=== PATIENT | female | born 2005 | race Caucasian/White ===

== ENCOUNTER 2025-06-29 08:19 | Inpatient (IN) | payer OTHER, SELFPAY ==
[2025-06-29] VITALS (13 sets, daily range): BP systolic 93–113; BP diastolic 63–75; PULSE 67–124; RESP 16–35; TEMP 36.9–37.9; O2SAT 94–98; BMI 27.6; BMI 27.7
--- NOTE | 2025-06-29 08:30 | EKG12_ITS ---
Test Reason : Blood Pressure : */* mmHG Vent. Rate : 112 BPM Atrial Rate : 112 BPM P-R Int : 142 ms QRS Dur : 74 ms QT Int : 310 ms P-R-T Axes : 61 83 18 degrees QTcB Int : 423 ms Sinus tachycardia Otherwise normal ECG Confirmed by MEET MANZANO, BERTRAND ([id number]), medical editor MILENA ZAPATA ([id number]) on 07/02/2025 7:03:25 AM Referred By: Confirmed By: BERTRAND DSOUZA MD
--- NOTE | 2025-06-29 08:31 | EX.ED.DYSGE1 ---
HPI History of Present Illness Chief Complaint: Fever Narrative Narrative: Patient is a 20-year-old female with no known significant past medical history who presented to the emergency department with a chief complaint of cough, sore throat, fever. According to family members they noted that she started getting ill on Wednesday of this past week and on Wednesday followed up with their doctor and she was diagnosed with strep throat. They state that she was started on a antibiotic for this and after reviewing the paperwork noted that this was amoxicillin. States that she has been taking this as prescribed and not missing doses. She notes that her fevers been 103 at home. Father at bedside notes that this morning when they checked her oxygen with a pulse ox it read 79% on room air. They note that she has a significant cough PFSH PFSH Home Medications ?Medication ?Instructions ?Recorded ?Last Taken ?Type NK 06/29/25 Unknown History Allergy/AdvReac Type Severity Reaction Status Date / Time No Known Allergies Allergy Verified 06/29/25 08:20 Social History Smoking Status: Never smoker ROS ROS ED ROS Narrative Constitutional: Complains of fever as noted above as well as chills denies headache Eyes: Denies changes double vision blurry vision Cardiovascular: Denies chest pain Respiratory: Complains of cough and low oxygen level at home as noted above Abdomen: Denies abdominal pain nausea vomit diarrhea : Denies any urinary symptoms Neurological: Denies any numbness, wheeze, tingling Musculoskeletal: Denies back pain Skin: Denies any rashes or lesions EXAM Physical Exam Narrative Exam Narrative: General: Patient is lying in bed rest comfortably did not appear to be in acute distress Head: Atraumatic, normocephalic Eyes, ears, nose, throat: PERRL bilaterally, EOMI bilaterally, no conjunctival injection noted, posterior pharynx visualized no evidence peritonsillar abscess uvula midline Neck: Soft, supple, trachea midline Cardiovascular: Patient tachycardic with a regular rhythm Respiratory: Clear to auscultation bilaterally Abdomen: Soft, nondistended, nontender to palpation Extremities: +5/5 strength noted in the bilateral upper and lower extremities Neurological: Patient following commands knew that she was at [facility] year is 2024 Skin: Warm, dry, tact no rashes or lesions noted Const Vital Signs: 06/29/25 08:20 06/29/25 08:22 06/29/25 08:30 Temperature 99.8 F H 99.2 F H Temperature Source Oral Oral Pulse Rate 112 H 113 H Respiratory Rate 18 25 H Blood Pressure 113/71 105/71 Blood Pressure Mean 85 82 Pulse Ox 96 96 95 Oxygen Delivery Method Room Air Room Air Room Air Oxygen Flow Rate (L/min) 06/29/25 09:22 06/29/25 10:00 Temperature 99.5 F H 99.1 F Temperature Source Oral Oral Pulse Rate 124 H 115 H Respiratory Rate 26 H 29 H Blood Pressure 112/71 103/68 Blood Pressure Mean 84 79 Pulse Ox 95 95 Oxygen Delivery Method Room Air Nasal Cannula Oxygen Flow Rate (L/min) 2 2 MDM MDM MDM Narrative Medical decision making narrative: Patient is a 20-year-old female who presented to the emergency department chief complaint of fever, cough and recent diagnosis of strep throat. Once again she has been on amoxicillin. On the differential diagnose includes but not limited to peritonsillar abscess, retropharyngeal abscess although clinically have low suspicion for these, pneumonia, press for infection secondary viral etiology. Once workup is obtained and reviewed she will be reevaluated. Patient will be given IV fluids for hydration. Patient CBC reviewed showed no evidence leukocytosis white blood count 9.2, he was 14.6, platelet count was noted be 231. Patient INR normal 1.2, PT of 15, sodium normal 137, potassium normal at 4, creatinine 0.65. Patient lactic acid level less than 1, AST and ALT were 60 and 106 respectively. Patient is negative, urinalysis reviewed showed no evidence of infection. Patient's chest x-ray reviewed by myself and by radiology which showed a left midlung opacity likely pneumonia. Patient will be given Rocephin and azithromycin this was ordered at 9:34 AM. Patient's EKG reviewed and showed sinus tachycardia with a rate of 112 bpm. Patient ambulated here in the emergency department and she dropped her O2 sat to 89% and is still persistently tachycardic to the 120s therefore we will reach out to the hospitalist for admission for IV antibiotics. Patient remained at 88% after returning to the bed therefore she was placed on 2 L nasal cannula Discussed case with hospitalist Dr. Montiel who accept patient for admission. Patient notified all question concerns were answered. Lab Data Labs: Laboratory Results - last 24 hr 06/29/25 06/29/25 08:34 09:42 WBC 9.2 RBC 5.22 Hgb 14.6 Hct 43.5 MCV 83.3 MCH 28.0 MCHC 33.6 RDW Std Deviation 38.4 RDW Coeff of Ade 12.7 Plt Count 231 MPV 10.9 Immature Gran % (Auto) 0.700 Neut % (Auto) 72.0 H Lymph % (Auto) 14.8 L [place] % (Auto) 11.1 H Eos % (Auto) 1.0 Baso % (Auto) 0.4 Absolute Neuts (auto) 6.6 Absolute Lymphs (auto) 1.36 Nucleated RBC % 0 PT 15.0 H INR 1.2 APTT 28.3 Sodium 137 Potassium 4.0 Chloride 100 Carbon Dioxide 23.9 Anion Gap 13 BUN 5 Creatinine 0.65 L Estim Creat Clear Calc 124.26 Est GFR (MDRD) Non-Af 128 BUN/Creatinine Ratio 7.9 L Glucose 99 Lactic Acid < 1.0 Calcium 9.4 Total Bilirubin 0.29 AST 60 H ALT 106 H Alkaline Phosphatase 97 Total Protein 7.5 Albumin 3.8 Globulin 3.7 Albumin/Globulin Ratio 1.0 Serum , Qual NEGATIVE Urine Color Yellow Urine Clarity Sl. Cloudy Urine pH 7.0 Ur Specific [place] 1.010 Urine Protein 30 H Urine Glucose (UA) Normal Urine Ketones Negative Urine Occult Blood 50 H Urine Nitrite Negative Urine Bilirubin Negative Urine Urobilinogen Normal Ur Leukocyte Esterase Negative Urine RBC 0-5 SEEN Urine WBC 0 SEEN Ur Squamous Epith Cells 0 SEEN Urine Bacteria 0 SEEN Urine Mucus 0 SEEN Radiography Diagnostic Testing: Clinical Impression(s) from Imaging Studies Chest X-Ray 06/29/25 08:55 IMPRESSION: Left midlung opacity likely pneumonia. Reading Location: [facility] Discharge Plan Triage Chief Complaint: Fever ED Provider: Martinez Hodges Dx/Rx/DC Orders Clinical Impression: Acute hypoxic respiratory failure, Pneumonia Prescriptions: No Action NK Primary Care Provider: Fran Cote Referrals: Fran Cote DO [Primary Care Provider] - Print Language: Sami Disposition Disposition: Acute Care [facility]
[2025-06-29] MEDS: 0.9% Normal Saline (1000mL) 1,000 ML 999 ML IV (08:54)
--- NOTE | 2025-06-29 08:55 | RAD_ITS ---
PROCEDURE: CHEST PA AND LATERAL 06/29/2025 REASON FOR EXAM: COUGH, SOB TECHNIQUE: CHEST PA AND LATERAL COMPARISON: None FINDINGS: Left midlung opacity likely pneumonia. No pleural effusion or pneumothorax. Cardiac silhouette is within normal limits. No acute fractures. RAD/Chest PA and Lateral IMPRESSION: Left midlung opacity likely pneumonia. Reading Location: [id number]
[2025-06-29 08:57] LABS: Hematocrit 43.5 % (37-47); Hemoglobin 14.6 g/dL (12.0-15.0); Immature Granulocytes Count 0.060 X10^3/uL (0.0-0.0); Mean Corp Hgb Conc 33.6 g/dL (32-36); Mean Corpuscular Volume 83.3 fL (81-99); Mean Platelet Vol. 10.9 fl (6.2-12.0); NRBC Flagged by Analyzer 0 % (0-5); Platelet Count 231 K/mm3 (150-450); RBC Distribution Width CV 12.7 % (11.6-14.6); RBC Distribution Width SD 38.4 fl (35.1-43.9); Red Blood Count 5.22 M/mm3 (4.2-5.4); White Blood Count 9.2 K/mm3 (4.4-11.0)
[2025-06-29 09:12] LABS: Internal QC Validated? YES +Cl - CLEAR BKGD; Pregnancy, Serum, hCG Quali. NEGATIVE Negative; Record Kit Lot#, Serum Preg. 0000962302
[2025-06-29 09:15] LABS: Prothrombin Time (Protime)PT. 15.0 SECONDS (11.7-14.9)
[2025-06-29 09:17] LABS: Partial Thromboplast Time 28.3 Seconds (24.1-36.2)
[2025-06-29 09:28] LABS: AST(SGOT) 60 U/L (<=31); Alanine Aminotransfer ALT/SGPT 106 U/L (<=34); Albumin, Serum 3.8 g/dL (3.5-5.0); Alkaline Phosphatase 97 U/L (35-104); Anion Gap 13 (5-15); BUN 5 mg/dL (4-19); BUN/Creat Ratio 7.9 RATIO (10-20); Calcium,Total 9.4 mg/dL (7.6-11.0); Carbon Dioxide 23.9 mmol/L (21.0-32.0); Chloride 100 mmol/L (98-108); Estimated Creatinine Clearance 124.26 ml/min (50-250); Globulin 3.7 g/dL (2.2-4.2); Glucose 99 mg/dL (70-99); Potassium 4.0 mmol/L (3.3-5.1)
[2025-06-29 09:57] LABS: Mucous, Urine 0 SEEN /hpf (<or=2+); Squamous Epithelial Cells - UA 0 SEEN /hpf (5-10)
[2025-06-29 09:59] LABS: Color, Urine Yellow (Yellow); Glucose, Dipstick Normal (Normal); Ketone-Dipstick Negative (Negative); Leukocyte Esterase-Dipstick Negative /ul (Negative); Nitrite-Dipstick Negative (Negative); Occult Blood-Urine 50 /ul (Negative); Protein-Dipstick 30 mg/dl (Negative); Specific Gravity, Urine 1.010 (1.002-1.030); Urine Bilirubin Dipstick Negative (Negative)
[2025-06-29 10:05] LABS: Red Blood Cells-Urine 0-5 SEEN /hpf (0-5)
[2025-06-29] MEDS: Ceftriaxone 2 GM in 0.9% Normal Saline (50mL MB+) 50 ML IV (10:14)
--- NOTE | 2025-06-29 10:31 | HP.PCM.HOS_ITS ---
HPI - General General Date of Admission: 06/29/25 Date of Service: 06/29/25 Chief Complaint: Shortness of breath and cough HPI Narrative NAKUL WALKER, is a 20 F who presented to the emergency department at [facility] on 06/29/2025 with a chief complaint of shortness of breath. Patient's been having symptoms for about a week and slowly worsening. She also had some pharyngitis and was seen as an outpatient and was given amoxicillin for suspected strep throat. Family indicates a culture was not performed. She slowly got worse. They took her to a wellness center yesterday where she had IVs with vitamins but has gotten worse since that point in time so they decided to have her evaluated in the emergency department. They stated last night was very poor with a lot of coughing and she did not sleep well. She has had associated fevers and chills, myalgias, and weakness along with her respiratory symptoms. She indicates she is producing some sputum and we have already sent a sputum culture. Vital signs on presentation showed temperature of 99.8, heart rate 112, respiratory 18, blood pressure 113/71 and pulse ox is 96% on room air. CBC shows no leukocytosis or left shift. Chemistry is unremarkable. Lactic acid is normal. UA is unremarkable. Chest x-ray shows large left lower lobe infiltrate. Ambulatory pulse ox was attempted in order to discharge her home however she desatted into the mid 80s after her ambulation with a saturation of 89% on room air with ambulation and given this it was felt she needed admitted. She was given ceftriaxone and azithromycin and admitted to the medical floor reason status for now. [facility] Medical History no medical history no medical history Home Medications ?Medication ?Instructions ?Recorded ?Last Taken ?Type NK 06/29/25 Unknown History Allergy/AdvReac Type Severity Reaction Status Date / Time No Known Allergies Allergy Verified 06/29/25 08:20 Family History no significant family his no significant family history Surgical History no surgical history no surgical history Social History (Updated 06/29/25 @ 16:[address] Leslie Montiel, DO) household members: family housing: house current occupational status: employed current occupation: Works at [employer] other: [employer] Smoking Status: Never smoker alcohol intake: never substance use type: does not use ROS Constitutional Constitutional: Reports chills, fatigue, fever(s), malaise, weakness and other Details: Decreased appetite ; Denies anorexia, change in weight or night sweats Eyes Eyes: Denies blurry vision, change in eye color, change in vision, discharge from eye(s), double vision, erythema, eye pain, loss of vision or other ENT HEENT: Reports sore throat; Denies abnormal hearing, dysphagia, ear pain, epistaxis, headache(s), hearing loss, nasal congestion, nasal discharge, post nasal drip, sinus pressure or other Cardiovascular Cardiovascular: Denies chest pain, claudication, dyspnea on exertion, edema, lightheadedness, orthopnea, palpitations, paroxysmal nocturnal dyspnea, rapid heart rate, syncope or other Respiratory/Chest Respiratory/Chest: Reports cough, dyspnea, productive cough and shortness of breath with exertion; Denies excessive phlegm production, hemoptysis, shortness of breath at rest, wheezing or other Gastrointestinal Gastrointestinal: Denies abdominal pain, coffee ground emesis, constipation, diarrhea, dyspepsia, hematemesis, hematochezia, loose stools, melena, nausea, vomiting or other Genitourinary Genitourinary: Denies burning urination, difficulty urinating, dysuria, hematuria, nocturia, urinary frequency, urinary hesitancy, urinary incontinence, urinary urgency or other Musculoskeletal Musculoskeletal: Denies arthralgias, back pain, joint pain, joint stiffness, joint swelling, myalgias, neck pain or other Neurologic Neurologic: Denies abnormal gait, abnormal speech, confusion, disequilibrium, dizziness, focal weakness, headache(s), numbness, paresthesias, seizure-like activity, seizures, syncope, tingling, tremor(s) or other Psychiatric Psychiatric: Denies anxiety, depression, homicidal ideation, suicidal ideation or other Endocrine Endocrinology: Denies change in body appearance, cold intolerance, excessive sweating, heat intolerance, polydipsia, polyuria or other Hematologic/Lymphatic Hematologic/Lymphatic: Denies anemia, easy bleeding, easy bruising, lymphadenopathy or other Allergic/Immunologic Allergic/Immunologic: Denies rhinitis, hives, eczemia, asthma or other Vital Signs Vital Signs Vital Signs: 06/29/25 08:20 06/29/25 08:22 06/29/25 08:30 Temperature 99.8 F H 99.2 F H Temperature Source Oral Oral Pulse Rate 112 H 113 H Respiratory Rate 18 25 H Blood Pressure 113/71 105/71 Blood Pressure Mean 85 82 Pulse Ox 96 96 95 Oxygen Delivery Method Room Air Room Air Room Air Oxygen Flow Rate (L/min) 06/29/25 09:22 06/29/25 10:00 Temperature 99.5 F H 99.1 F Temperature Source Oral Oral Pulse Rate 124 H 115 H Respiratory Rate 26 H 29 H Blood Pressure 112/71 103/68 Blood Pressure Mean 84 79 Pulse Ox 95 95 Oxygen Delivery Method Room Air Nasal Cannula Oxygen Flow Rate (L/min) 2 2 Weight Weight: 68.583 kg Body Mass Index (BMI) 27.6 Physical Exam Const alert, oriented x3, no apparent distress, average body habitus, healthy appearing and well nourished Constitutional Narrative: Yellow, white female, lying in bed, appears ill but not toxic, very pleasant, father at bedside General Appearance: cooperative HEENT normocephalic, head/scalp atraumatic and moist oral mucous membranes HEENT Narrative: Mallampati 2, no thrush Eyes conjunctivae normal Eyes Narrative: No scleral icterus Neck supple Neck Narrative: Trachea midline, no thyroid enlargement Resp normal respiratory effort, no retractions, no use of accessory muscles and No clear to auscultation bilaterally Resp Narrative: Intermittent cough but sounds rhonchorous, tactile fremitus left lower lobe, rhonchi left lower lobe but otherwise clear Auscultation: rhonchi; Negative for crackles or wheezes Cardio regular rhythm, S1 normal heart sound, S2 normal heart sound, no murmurs, no rub, no gallops and no clicks Cardio Narrative: Mild tachycardia GI normal to inspection, nondistended, normoactive bowel sounds, soft to palpation and non-tender Extremity no clubbing, cyanosis or edema Extremity Narrative: Pedal pulses and radial pulses are 2+ Neuro oriented x3, moves all extremities and no focal motor deficits Speech: speech normal Psych affect normal Psych Narrative: Very pleasant interacts appropriately Results Lab / Micro Data 06/29/25 08:34 06/29/25 08:34 Labs: Laboratory Results - last 24 hr 06/29/25 08:34: WBC 9.2, RBC 5.22, Hgb 14.6, Hct 43.5, MCV 83.3, MCH 28.0, MCHC 33.6, RDW Std Deviation 38.4, RDW Coeff of Ade 12.7, Plt Count 231, MPV 10.9, Immature Gran % (Auto) 0.700, Neut % (Auto) 72.0 H, Lymph % (Auto) 14.8 L, [place] % (Auto) 11.1 H, Eos % (Auto) 1.0, Baso % (Auto) 0.4, Absolute Neuts (auto) 6.6, Absolute Lymphs (auto) 1.36, Nucleated RBC % 0, PT 15.0 H, INR 1.2, APTT 28.3, Sodium 137, Potassium 4.0, Chloride 100, Carbon Dioxide 23.9, Anion Gap 13, BUN 5, Creatinine 0.65 L, Estim Creat Clear Calc 124.26, Est GFR (MDRD) Non-Af 128, BUN/Creatinine Ratio 7.9 L, Glucose 99, Lactic Acid < 1.0, Calcium 9.4, Total Bilirubin 0.29, AST 60 H, ALT 106 H, Alkaline Phosphatase 97, Total Protein 7.5, Albumin 3.8, Globulin 3.7, Albumin/Globulin Ratio 1.0, Serum , Qual NEGATIVE 06/29/25 09:42: Urine Color Yellow, Urine Clarity Sl. Cloudy, Urine pH 7.0, Ur Specific [place] 1.010, Urine Protein 30 H, Urine Glucose (UA) Normal, Urine Ketones Negative, Urine Occult Blood 50 H, Urine Nitrite Negative, Urine Bilirubin Negative, Urine Urobilinogen Normal, Ur Leukocyte Esterase Negative, Urine RBC 0-5 SEEN, Urine WBC 0 SEEN, Ur Squamous Epith Cells 0 SEEN, Urine Bacteria 0 SEEN, Urine Mucus 0 SEEN Imaging Radiology Impression Chest X-Ray 06/29/25 08:55 IMPRESSION: Left midlung opacity likely pneumonia. Reading Location: [facility] Assessment & Plan Assessment/Plan (1) Pneumonia: (2) Hypoxemia: PLAN: Plan Community-acquired pneumonia - Patient with left lower lobe infiltrate - Start Levaquin--> received ceftriaxone azithromycin in emergency department next-check strep pneumo and Legionella antigens - Mucinex 1200 p.o. twice daily - I-S - Acapella - As needed and scheduled nebulizers - Check HIV - Okay to start antitussives as needed however patient declines at this time Hypoxia - Patient with post exertional hypoxia into the mid 80s - Currently recovered on room air - Will need ambulatory pulse ox prior to discharge Transaminitis - Etiology is unclear - Will repeat in the morning and if still elevated further workup DVT prophylaxis - Lovenox subcu daily CODE STATUS -Full code Charges/Coding Visit Charges Inpatient E&M: 75137 Init Hosp L2
[2025-06-29] MEDS: Azithromycin 500 MG in 0.9% Normal Saline (250mL Bag) 250 ML 250 MG IV (10:56)
[2025-06-29 13:57] LABS: HIV Nonreactive (Nonreactive)
[2025-06-30 02:42] VITALS: BP 98/60; PULSE 93; RESP 18; TEMP 36.9; O2SAT 94
[2025-06-30 07:19] LABS: Hematocrit 40.0 % (37-47); Hemoglobin 13.4 g/dL (12.0-15.0); Immature Granulocytes Count 0.060 X10^3/uL (0.0-0.0); Mean Corp Hgb Conc 33.5 g/dL (32-36); Mean Corpuscular Volume 83.3 fL (81-99); Mean Platelet Vol. 10.9 fl (6.2-12.0); NRBC Flagged by Analyzer 0 % (0-5); Platelet Count 256 K/mm3 (150-450); RBC Distribution Width CV 13.0 % (11.6-14.6); RBC Distribution Width SD 39.4 fl (35.1-43.9); Red Blood Count 4.80 M/mm3 (4.2-5.4); White Blood Count 7.7 K/mm3 (4.4-11.0)
[2025-06-30 08:07] LABS: AST(SGOT) 70 U/L (<=31); Alanine Aminotransfer ALT/SGPT 133 U/L (<=34); Albumin, Serum 3.7 g/dL (3.5-5.0); Alkaline Phosphatase 102 U/L (35-104); Anion Gap 12 (5-15); BUN 9 mg/dL (4-19); BUN/Creat Ratio 13.0 RATIO (10-20); Calcium,Total 9.3 mg/dL (7.6-11.0); Carbon Dioxide 23.9 mmol/L (21.0-32.0); Chloride 103 mmol/L (98-108); Estimated Creatinine Clearance 117.46 ml/min (50-250); Globulin 3.3 g/dL (2.2-4.2); Glucose 84 mg/dL (70-99); Magnesium 2.5 mg/dL (1.5-2.2); Potassium 4.3 mmol/L (3.3-5.1)
[2025-06-30 09:19] VITALS: BP 107/65; PULSE 102; RESP 18; TEMP 36.8; O2SAT 93
[2025-06-30] MEDS: 0.9% Normal Saline (250mL Bag) 250 ML 15 ML IV (09:27)
[2025-06-30] MEDS: 0.9% Saline Lock 10 ML Syringe IV (09:27)
[2025-06-30] MEDS: levoFLOXacin IV 750 MG/150 ML BAG 100 MG IV (09:27)
--- NOTE | 2025-06-30 10:44 | CASEMGMT ---
Social Work SW met w/pt to ask about LW/POA as an order was put in that pt was interested in completing documents. Pt declined completing documents at this time. ANGELA Arboleda
[2025-06-30 11:28] VITALS: O2SAT 91; O2SAT 95
[2025-06-30 11:36] VITALS: PULSE 77; RESP 16
--- NOTE | 2025-06-30 11:42 | PCM.DC.SUM ---
Providers Date of Admission: 06/29/25 Date of Discharge: 06/30/25 Primary Care Physician: Dr. Fran Cote DO Reason For Visit: R CAP Diagnosis Discharge Diagnosis (1) Pneumonia: Status: Acute Code(s): J18.9 - Pneumonia, unspecified organism (2) Hypoxemia: Status: Acute Code(s): R09.02 - Hypoxemia Medications at Discharge Home Medications NK 06/29/25 guaifenesin 1,200 mg tablet, extended release 12 hr (Mucus Relief ER) 1,200 mg PO BID #0 tabs 06/30/25 levofloxacin 750 mg tablet 750 mg PO DAILY #5 tabs 06/30/25 Hospital Course Operations None Procedures - (Chest x-ray) Summary of Care Provided Minutes Spent on Discharge: 36 Hospital Course: NAKUL WALKER, is a 20 F who presented to the emergency department at [facility] on 06/29/2025 with a chief complaint of shortness of breath. Patient's been having symptoms for about a week and slowly worsening. She also had some pharyngitis and was seen as an outpatient and was given amoxicillin for suspected strep throat. Family indicates a culture was not performed. She slowly got worse. They took her to a wellness center yesterday where she had IVs with vitamins but has gotten worse since that point in time so they decided to have her evaluated in the emergency department. They stated last night was very poor with a lot of coughing and she did not sleep well. She has had associated fevers and chills, myalgias, and weakness along with her respiratory symptoms. She indicates she is producing some sputum and we have already sent a sputum culture. Vital signs on presentation showed temperature of 99.8, heart rate 112, respiratory 18, blood pressure 113/71 and pulse ox is 96% on room air. CBC shows no leukocytosis or left shift. Chemistry is unremarkable. Lactic acid is normal. UA is unremarkable. Chest x-ray shows large left lower lobe infiltrate. Ambulatory pulse ox was attempted in order to discharge her home however she desatted into the mid 80s after her ambulation with a saturation of 89% on room air with ambulation and given this it was felt she needed admitted. She was initially given ceftriaxone azithromycin emergency department. On admission she was admitted to the medical floor and placed on Levaquin for ease of transition to oral antibiotics at discharge. She was also placed on Mucinex, incentive [place], Acapella, and nebulizers. On the a.m. of 06/30/2025 she indicated she was feeling better overall. Given her improvement clinically we did it was very pulse ox and she was able to remain on room air both at rest and with exertion with her lowest saturation being 91 to 92% with exertion and quick recovery. I will complete antibiotic course with Levaquin 750 mg daily for the next 5 days. She said 2 days of treatment prior to discharge. Strep pneumo and Legionella antigens were negative. Sputum culture is pending and on Gram stain there were few gram-negative rods. I will continue to monitor this for sensitivities and finalized results to ensure that Levaquin is a proper antibiotic but given her clinical improvement I suspect that sensitivity will be present. She is to stop the antibiotics that were given to her as an outpatient for her strep throat. I have encouraged her to continue to utilize Mucinex for the next 5 to 7 days as well as her incentive spirometer and Acapella for pulmonary toilet. We have asked her to follow-up with her primary care physician within the next week. Prescription was sent to local pharmacy prior to discharge. Discharge diagnoses: Community-acquired pneumonia Hypoxia Transaminitis would recommend repeat CMP in about 3 to 6 weeks and if still elevated pursue further workup to allow for acute clinical condition to resolve Physical Exam Const alert, oriented x3, no apparent distress, average body habitus, no limitations, healthy appearing and well nourished Constitutional Narrative: Yellow, white female, sitting up in bed, appears if she is feeling much better, does not appear toxic, very pleasant, mother at bedside General Appearance: cooperative, comfortable, well kempt and well developed Exam Limitations: no limitations HEENT normocephalic, head/scalp atraumatic, hearing grossly normal bilaterally and moist oral mucous membranes HEENT Narrative: Mallampati 2, no thrush Eyes conjunctivae normal Eyes Narrative: No scleral icterus Neck supple Neck Narrative: Trachea midline, no thyroid enlargement Resp normal respiratory effort, no retractions, no use of accessory muscles and No clear to auscultation bilaterally Resp Narrative: Coughing less, continues to have rhonchi in the left base but aeration improved Auscultation: rhonchi; Negative for crackles or wheezes Cardio regular rate, regular rhythm, S1 normal heart sound, S2 normal heart sound, no murmurs, no rub, no gallops and no clicks GI normal to inspection, nondistended, normoactive bowel sounds, soft to palpation and non-tender Extremity no clubbing, cyanosis or edema Extremity Narrative: Pedal pulses and radial pulses are 2+ Skin skin turgor normal, no jaundice, no petechiae and no mottling Neuro oriented x3, moves all extremities and no focal motor deficits Speech: speech normal Psych affect normal Psych Narrative: Very pleasant interacts appropriately Weight / BMI Weight Weight: 68.35 kg Body Mass Index (BMI) 27.7 ABG / Lab / Microbiology Data 06/30/25 06:07 06/30/25 06:07 Laboratory: Laboratory Results - last 24 hr 06/29/25 11:35: HIV 1&2 Antibody Nonreactive 06/30/25 06:07: WBC 7.7, RBC 4.80, Hgb 13.4, Hct 40.0, MCV 83.3, MCH 27.9, MCHC 33.5, RDW Std Deviation 39.4, RDW Coeff of Ade 13.0, Plt Count 256, MPV 10.9, Immature Gran % (Auto) 0.800, Neut % (Auto) 66.2, Lymph % (Auto) 18.5 L, [place] % (Auto) 11.2 H, Eos % (Auto) 3.0, Baso % (Auto) 0.3, Absolute Neuts (auto) 5.1, Absolute Lymphs (auto) 1.42, Nucleated RBC % 0, Sodium 139, Potassium 4.3, Chloride 103, Carbon Dioxide 23.9, Anion Gap 12, BUN 9, Creatinine 0.67 L, Estim Creat Clear Calc 117.46, Est GFR (MDRD) Non-Af 127, BUN/Creatinine Ratio 13.0, Glucose 84, Calcium 9.3, Phosphorus 4.1, Magnesium 2.5 H, Total Bilirubin 0.29, AST 70 H, ALT 133 H, Alkaline Phosphatase 102, Total Protein 7.0, Albumin 3.7, Globulin 3.3, Albumin/Globulin Ratio 1.1 Microbiology: Microbiology 06/29/25 13:39 Mucosa - Nasopharyngeal Respiratory Panel (PCR) - Final 06/29/25 12:40 Sputum, Expectorated/Coughed Gram Stain - Final 06/29/25 12:40 Urine, Clean Catch Legionella Antigen - Final 06/29/25 12:40 Urine, Clean Catch Streptococcus pneumoniae Antigen (M - Final D/C Instructions Discharge Activity: Return to Normal Activity DC O2, CPAP, BIPAP Needs Home O2 Discharge instructions: No Meaningful Use Info Meaningful Use Meaningful Use Diagnoses (Choose all that apply): None applicable Discharge Plan Admission Admit Date/Time: 06/29/25 10:32 Primary Reason for Your Visit: Shortness of breath and cough Attending Provider: Leslie Montiel Primary Care Provider: Fran Cote Instructions Additional Instructions / Restrictions: 1. I would recommend taking Mucinex supplements for the next 7 days 2. Continue to use the incentive spirometer and Acapella Discharge Orders/Prescriptions Prescriptions: New guaifenesin [Mucus Relief ER] 1,200 mg Tablet Extended Release 12hr 1,200 mg PO BID Qty: 0 0RF levofloxacin 750 mg tablet 750 mg PO DAILY Qty: 5 0RF Continued NK Referrals / Follow Up: Fran Cote DO [Primary Care Provider] - Within 1 Week Disposition Disposition (needs filled in before D/C Order can be placed): Home, Self Care Charges/Coding Visit Charges Inpatient E&M: 40122 Disch Hosp >30min
--- NOTE | 2025-06-30 11:54 | CASEMGMT ---
FELIX CM NOTE: Home amb O2 testing has been completed. Pt does not qualify for home O2. Julissa DAIGLE RN CM
--- NOTE | 2025-07-02 15:21 | PCM.HOSP.N ---
Hospitalist Note Sputum cx postitive MRSA resulted at 745 on 07/02. D/C home with Levaquin. 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 Discussed with father and they will stop the Levaquin and start doxycycline tonight.
== END 2025-06-30 15:29 | disposition home or self-care (01) | DRG 195 ==
LOC: ED 10:33 → MS3 06-30 11:50
PROVIDERS: Admitting Provider Internal Medicine; Emergency Provider Emergency Medicine; PCP Family Medicine; Visit Provider Internal Medicine
DX: J18.9 Pneumonia, unspecified organism (principal); J02.0 Streptococcal pharyngitis
CPT/HCPCS: 36415; 71046; 80053; 81001; 83605; 83735; 84100; 84703; 85025; 85610; 85730; 86703; 87040; 87070; 87077; 87086; 87186; 87205; 87449; 87633; 93005; 94640; 94667; 94668; 99285; A4216; J0696